=== PATIENT | male | born 1950 | race Caucasian/White ===

== ENCOUNTER → 2018-07-08 13:39 | Outpatient (CLI) | payer MEDICARE, SELFPAY ==
[2018-07-08 16:34] LABS: PSA,Total - Annual Screen 0.32 ng/mL (0.00-4.00)
--- OUTSIDE RECORDS SUMMARY | 2018-09-12 03:33 | XMS RPT_ITS ---
:1950 Author Organization [facility] Care Team Providers Name Role Phone Mike Watson Attending Unavailable Mike Watson Primary Care Unavailable PROBLEMS PROBLEMS DATE TYPE CONDITION / CODE ATTENDING STATUS SOURCE 07/08/2018 Unknown Z12.5 - Mike Watson Active [place] Encounter for Community screening for Hospital malignant Repository neoplasm of prostate / Z12.5(ICD-10) PROCEDURES PROCEDURES No Procedure Records FoundRESULTS RESULTS PSA,TOTAL - ANNUAL Collected: 07/08/2018 Status: F Source: [place] SCREEN 1:48 PM [facility] REPOSITORY TYPE CODE TESTS RESULT OUT OF RANGE REFERENCE UNITS LAB L501.9910 0.00-4.00 ng/mL Normal PSA,TOT 0.32 SCREEN Result Comment: This test was performed using the TPSA assay method for the [employer] chemistry system. Values obtained with different assay methods cannot be used interchangably. When changing PSA assays in the course of monitoring a patient, additional sequential testing should be carried out to confirm baseline values. Performed By: #### [id number] #### [facility] [address] [place], [address] ALLERGIES ALLERGIES No Allergies Records FoundENCOUNTERS ENCOUNTERS ADMIT/DISCHARGE ACCOUNT ADMITTING ENCOUNTER LOCATION SOURCE NUMBER CLASS 07/08/2018 [id number] Ambulatory [facility] ing:BFHLAB Repository PAYERS PAYERS ENCOUNTER GUARANTOR PAYER SUBSCRIBER SOURCE 07/08/2018 HETAL Bishop Primary HETAL Mcwilliams [id number] Insurance:MEDICARE THOMASDOB[facility] [id number]: Repository [id number]: [phone] [id number] [phone] () Date:2018-07-08 07/08/2018 Secondary HETAL Mcwilliams Insurance:TITO RAMOS: Community MEDICAREPolicy [id number] Hospital Number: Repository [id number] Date:1321-15-12[address] [place] [id number]: 07/08/2018 Tertiary NOT [place] Insurance:SELF PAY [facility] Number: Effective Repository Date:2018-07-08
== END ==
PROVIDERS: Family Provider Family Medicine; PCP Family Medicine; Visit Provider Family Medicine
DX: Z12.5 Encounter for screening for malignant neoplasm of prostate (principal)
CPT/HCPCS: 36415; 84153; G0103

== ENCOUNTER → 2018-07-18 08:27 | Outpatient (CLI) | payer MEDICARE, SELFPAY ==
--- NOTE | 2018-07-18 08:30 | US_ITS ---
HISTORY: AAA SCREENINGHX OF SMOKER X 37 YEARS EXAM/TECHNIQUE: US Duplex Aorta, IVC, Illiac or Bypass Grafts Complete: COMPARISON: None. FINDINGS: # of images incl. paperwork: 36 The abdominal aorta measures 2.3 x 2.1 cm proximally, 1.8 x 2.2 cm at the midportion, and 1.7 x 1.9 cm distally. There is atherosclerotic irregularity of the mid and distal abdominal aorta but no aneurysm. The right common iliac artery measures 0.8 x 1.0 cm. The left common iliac artery measures 0.8 x 0.9 cm. US/Aorta IMPRESSION: Atherosclerosis but with no abdominal aortic or common iliac artery aneurysm. at 1000 Reported and signed by: Lm Strong MD Electronically Signed: Lm Strong, at 9:59 EST Tel , Service support ,
== END ==
PROVIDERS: Family Provider Family Medicine; PCP Family Medicine; Referring Provider Family Medicine; Visit Provider Family Medicine
DX: R09.89 Other specified symptoms and signs involving the circulatory and respiratory systems (principal); Z13.6 Encounter for screening for cardiovascular disorders; Z72.0 Tobacco use
CPT/HCPCS: 76775

== ENCOUNTER → 2018-07-19 16:17 | Outpatient (CLI) | payer MEDICARE, SELFPAY ==
--- NOTE | 2018-07-19 16:19 | US_ITS ---
STUDY: SCROTUM ULTRASOUND REASON FOR EXAM: Male, 68 years old. Right-sided swelling, suspect hydrocele TECHNIQUE: Ultrasound evaluation of the scrotum was performed with color Doppler and static navarro-scale imaging. COMPARISON: None. FINDINGS: RIGHT TESTICLE INTRATESTICULAR: There is a normal size of the right testicle. The right testicle measures 3.9 x 3.4 x 2.0 cm. There is a homogenous echotexture. There is normal arterial and normal venous vascularity. There is no demonstrated right testicular mass or cyst. EXTRATESTICULAR: The epididymis is normal in size. The epididymis head measures 1.0 x 0.8 x 0.6 cm. There is normal vascularity of the epididymis. 2.3 x 1.1 x 2.0 cm epididymis cyst. There is a cystic structure in the right hemiscrotum measuring 8.5 x 7.7 x 6.3 cm. This is most likely a spermatocele. There is no demonstrated varicocele. There is no demonstrated extratesticular mass or cyst. LEFT TESTICLE INTRATESTICULAR: There is a normal size of the left testicle. The left testicle measures 4.3 x 2.7 x 1.7 cm. There is a homogenous echotexture. There is normal arterial and normal venous vascularity. There is no demonstrated left testicular mass or cyst. EXTRATESTICULAR: The epididymis is normal in size. The epididymis head measures 1.0 x 0.9 x 0.9 cm. There is normal vascularity of the epididymis. Epididymis cyst measuring 4 x 4 by 3 mm. There is no demonstrated hydrocele. There is no demonstrated varicocele. There is no demonstrated extratesticular mass or cyst. US/Testicular with Arterial Flow IMPRESSION: There is a cystic structure in the right hemiscrotum measuring 8.5 x 7.7 x 6.3 cm. This is most likely a spermatocele. No evidence of intratesticular pathology. Bilateral epididymis cysts. Electronically Signed: Bj Gates MD at 10:00 EST Tel , Service support ,
== END ==
PROVIDERS: Family Provider Family Medicine; PCP Family Medicine; Referring Provider Family Medicine; Visit Provider Family Medicine
DX: N43.2 Other hydrocele (principal)
CPT/HCPCS: 76870; 93976

== ENCOUNTER → 2019-01-18 | Outpatient (CLI) | payer MEDICARE, OTHER, SELFPAY ==
--- NOTE | 2019-01-18 10:22 | RAD_ITS ---
STUDY: X-RAY - PELVIS REASON FOR EXAM: Male, 68 years old. Chronic hip and back pain TECHNIQUE: One view of the pelvis was obtained. COMPARISON: None. FINDINGS: There is a non-specific bowel gas pattern. Normal visualized soft tissue structures. Normal bilateral iliac wings, sacroiliac joints and visualized sacrum. Normal visualized bilateral superior and inferior pubic rami. Normal pubic symphysis. Normal ischial tuberosities. Normal visualized right femoral head. Normal right acetabulum. There is mild articular joint space narrowing of the right hip. Normal visualized left femoral head. Normal left acetabulum. There is moderate articular joint space narrowing of the left hip. RAD/Pelvis 1 or 2 Views IMPRESSION: Bilateral hip joint arthrosis, slightly more prominent on the left than the right. No demonstrated fracture or suspicious osseous lesion Electronically Signed: Mazin Garcia MD at 11:01 EDT , Service support ,
[2019-01-18 10:46] LABS: Absolute Lymphocyte Count 0.98 X10^3/uL (0.83-4.51); Absolute Neutrophil Count 8.9 X10^3/uL (2.0-7.7); Basophil# 0.02 X10^3/uL; Basophil% 0.2 % (0-1); Eosinophil# 0.29 X10^3/uL; Eosinophils% 2.6 % (0-5); Hematocrit 35.4 % (40-54); Hemoglobin 11.6 g/dL (13.0-16.5); Lymphocyte # 0.98 X10^3/ul (4.0); Lymphocyte % 8.9 % (19-41); Mean Corp Hgb Conc 32.8 g/dL (32-36); Mean Corpuscular Hgb 31.4 pg (27.0-32.0); Mean Corpuscular Volume 95.7 fL (80-94); Monocyte# 0.71 X10^3/uL; Monocyte% 6.5 % (0-10); NRBC Flagged by Analyzer 0 % (0-5); Neutrophil # 8.87 X10^3/uL (2.7-7.7); Neutrophil % 81.1 % (47-70); Platelet Count 528 K/mm3 (150-450); RBC Distribution Width CV 13.2 % (11.6-14.6); RBC Distribution Width SD 46.5 fl (35.1-43.9)
[2019-01-18 11:00] LABS: Erythrocyte Sedimentation Rate 71 mm/hr (0-20)
[2019-01-18 11:09] LABS: ALB/GLOB Ratio 0.8 RATIO (0.9-2.4); AST(SGOT) 20 U/L (15-37); Alanine Aminotransfer ALT/SGPT 26 U/L (16-61); Alkaline Phosphatase 88 U/L (45-117); Anion Gap 6 (5-15); BUN 18 mg/dL (7-18); BUN/Creat Ratio 24.1 RATIO (10-20); Calcium,Total 8.5 mg/dL (8.5-10.1); Chloride 109 mmol/L (98-107); Creatinine, Serum 0.75 mg/dL (0.70-1.30); EST Glomerular Filtration Rate 111 mL/min (>60); Est Glom Filt Rate - Afr Amer 134 mL/min (>60); Globulin 3.8 g/dL (2.2-4.2); Glucose 95 mg/dL (74-106); Potassium 4.3 mmol/L (3.5-5.1); Protein, Total 6.8 g/dL (6.4-8.2); Rheumatoid Factor < 10.0 IU/mL (<15); Sodium Level 143 mmol/L (136-145)
[2019-01-19 15:57] LABS: ANTINUCLEAR ANTIBODIES DIRECT Negative (Negative)
[2019-01-21 03:06] LABS: Lyme IgG P18 Ab Absent (.); Lyme IgG P23 Ab Absent (.); Lyme IgG P28 Ab Absent (.); Lyme IgG P30 Ab Absent (.); Lyme IgG P39 Ab Absent (.); Lyme IgG P41 Ab Absent (.); Lyme IgG P45 Ab Absent (.); Lyme IgG P58 Ab Absent (.); Lyme IgG P66 Ab Absent (.); Lyme IgG P93 Ab Absent (.); Lyme IgM P23 Ab Absent (.); Lyme IgM P39 Ab Absent (.); Lyme IgM P41 Ab Absent (.)
[2019-01-23 08:19] LABS: CCP IgG Antibodies 6 units (0-19); Lyme IgG WB Interpretation Negative (.); Lyme IgM WB Interpretation Negative (.)
== END | disposition home or self-care (01) ==
PROVIDERS: Family Provider Family Medicine; PCP Family Medicine; Referring Provider Family Medicine; Visit Provider Family Medicine
DX: R10.2 Pelvic and perineal pain (principal); M25.50 Pain in unspecified joint; R63.4 Abnormal weight loss; Z12.5 Encounter for screening for malignant neoplasm of prostate
CPT/HCPCS: 36415; 72170; 80053; 85025; 85652; 86038; 86140; 86200; 86225; 86235; 86431; 86617

== ENCOUNTER → 2020-01-11 09:32 | Outpatient (CLI) | payer MEDICARE, OTHER, SELFPAY ==
[2020-01-11 12:23] LABS: Absolute Lymphocyte Count 1.31 X10^3/uL (0.83-4.51); Absolute Neutrophil Count 5.3 X10^3/uL (2.0-7.7); Basophil# 0.06 X10^3/uL; Basophil% 0.8 % (0-1); Eosinophil# 0.44 X10^3/uL; Eosinophils% 5.6 % (0-5); Hematocrit 40.1 % (40-54); Hemoglobin 13.4 g/dL (13.0-16.5); Lymphocyte # 1.31 X10^3/ul (4.0); Lymphocyte % 16.8 % (19-41); Mean Corp Hgb Conc 33.4 g/dL (32-36); Mean Corpuscular Hgb 33.3 pg (27.0-32.0); Mean Corpuscular Volume 99.8 fL (80-94); Monocyte# 0.68 X10^3/uL; Monocyte% 8.7 % (0-10); NRBC Flagged by Analyzer 0 % (0-5); Neutrophil # 5.28 X10^3/uL (2.7-7.7); Neutrophil % 67.7 % (47-70); Platelet Count 328 K/mm3 (150-450); RBC Distribution Width CV 13.7 % (11.6-14.6); RBC Distribution Width SD 50.4 fl (35.1-43.9); Red Blood Count 4.02 M/mm3 (4.6-6.2); White Blood Count 7.8 K/mm3 (4.4-11.0)
[2020-01-11 12:34] LABS: ALB/GLOB Ratio 1.2 RATIO (0.9-2.4); AST(SGOT) 20 U/L (15-37); Alanine Aminotransfer ALT/SGPT 30 U/L (16-61); Albumin, Serum 3.5 g/dL (3.2-5.0); Alkaline Phosphatase 59 U/L (45-117); Anion Gap 1 (5-15); BUN 21 mg/dL (7-18); BUN/Creat Ratio 27.1 RATIO (10-20); Calcium,Total 8.5 mg/dL (8.5-10.1); Chloride 108 mmol/L (98-107); Creatinine, Serum 0.78 mg/dL (0.70-1.30); EST Glomerular Filtration Rate 106 mL/min (>60); Est Glom Filt Rate - Afr Amer 128 mL/min (>60); Globulin 2.9 g/dL (2.2-4.2); Glucose 80 mg/dL (74-106); PSA,Total - Annual Screen 0.36 ng/mL (0.00-4.00); Potassium 4.2 mmol/L (3.5-5.1); Protein, Total 6.4 g/dL (6.4-8.2); Sodium Level 139 mmol/L (136-145)
== END ==
PROVIDERS: PCP Family Medicine; Visit Provider Family Medicine
DX: D64.9 Anemia, unspecified (principal); I70.0 Atherosclerosis of aorta; E88.09 Other disorders of plasma-protein metabolism, not elsewhere classified; Z12.5 Encounter for screening for malignant neoplasm of prostate
CPT/HCPCS: 36415; 80053; 84153; 85025; G0103

== ENCOUNTER → 2022-04-14 | Outpatient (CLI) | payer MEDICARE, OTHER, SELFPAY ==
[2022-04-14 12:19] LABS: Absolute Lymphocyte Count 1.32 X10^3/uL (0.83-4.51); Absolute Neutrophil Count 4.7 X10^3/uL (2.0-7.7); Basophil# 0.05 X10^3/uL; Basophil% 0.7 % (0-1); Eosinophil# 0.35 X10^3/uL; Eosinophils% 4.9 % (0-5); Hematocrit 42.4 % (40-54); Hemoglobin 14.3 g/dL (13.0-16.5); Lymphocyte # 1.32 X10^3/ul (0.83-4.51); Lymphocyte % 18.4 % (19-41); Mean Corp Hgb Conc 33.7 g/dL (32-36); Mean Corpuscular Hgb 33.8 pg (27.0-32.0); Mean Corpuscular Volume 100.2 fL (80-94); Monocyte# 0.75 X10^3/uL; Monocyte% 10.5 % (0-10); NRBC Flagged by Analyzer 0 % (0-5); Neutrophil # 4.67 X10^3/uL (2.7-7.7); Neutrophil % 65.1 % (47-70); Platelet Count 327 K/mm3 (150-450); RBC Distribution Width CV 13.3 % (11.6-14.6); RBC Distribution Width SD 49.4 fl (35.1-43.9); Red Blood Count 4.23 M/mm3 (4.6-6.2); White Blood Count 7.2 K/mm3 (4.4-11.0)
[2022-04-14 12:31] LABS: Color, Urine Yellow (Yellow); Glucose, Dipstick Normal (Normal); Ketone-Dipstick Negative (Negative); Leukocyte Esterase-Dipstick Negative /ul (Negative); Nitrite-Dipstick Negative (Negative); Occult Blood-Urine Negative /ul (Negative); Protein-Dipstick Negative (Negative); Urine Bilirubin Dipstick Negative (Negative); Urine Clarity Clear (Clear); Urine Urobilinogen Normal (Normal)
[2022-04-14 12:42] LABS: ALB/GLOB Ratio 1.1 RATIO (0.9-2.4); AST(SGOT) 26 U/L (15-37); Alanine Aminotransfer ALT/SGPT 35 U/L (16-61); Albumin, Serum 3.6 g/dL (3.2-5.0); Alkaline Phosphatase 64 U/L (45-117); Anion Gap 3 (5-15); BUN 21 mg/dL (7-18); BUN/Creat Ratio 23.3 RATIO (10-20); Calcium,Total 8.9 mg/dL (8.5-10.1); Chloride 110 mmol/L (98-107); Cholesterol 191 mg/dL (200); EST Glomerular Filtration Rate 88 mL/min (>60); Est Glom Filt Rate - Afr Amer 107 mL/min (>60); Globulin 3.2 g/dL (2.2-4.2); Glucose 99 mg/dL (74-106); High Density Lipoprotein 57 mg/dL; PSA,Total - Annual Screen 0.34 ng/mL (0.00-4.00); Potassium 4.6 mmol/L (3.5-5.1); Protein, Total 6.8 g/dL (6.4-8.2); Sodium Level 141 mmol/L (136-145); Triglycerides 60 mg/dL; Very Low Density Lipoprotein 12 mg/dL (5-40)
== END | disposition home or self-care (01) ==
LOC: BFHLAB 10:02
PROVIDERS: PCP Family Medicine; Visit Provider Family Medicine
DX: E78.5 Hyperlipidemia, unspecified (principal); R79.9 Abnormal finding of blood chemistry, unspecified; Z51.81 Encounter for therapeutic drug level monitoring; Z12.5 Encounter for screening for malignant neoplasm of prostate
CPT/HCPCS: 36415; 80053; 80061; 81002; 84153; 85025; G0103

== ENCOUNTER → 2023-07-05 | Outpatient (CLI) | payer MEDICARE, OTHER, SELFPAY ==
--- OUTSIDE RECORDS SUMMARY | 2023-07-05 12:04 | XMS RPT_ITS | CCD ---
Author Name Unknown Address [address] [place] [address] Organization [facility] Care Team Providers Care Industrial Controller Name Role Phone Mike Watson Primary Care Provider Hank Salcido MD Unavailable Mike Watson DO Primary Care Provider Medications Completed/Discontinued Medications Medication Drug Class(es) Dates Sig (Normalized) Sig (Original) calcium carbonate 1250 mg / cholecalciferol 200 unt oral tablet (8 sources) Vitamin D Start: 04-19-2019 End: 03-05-2020 take 1 tablet by mouth once daily CALCIUM 500+D 500 mg(1,250mg) -200 unit per tablet TAKE 1 TABLET BY MOUTH EVERY DAY 90 tablet 2 03/05/2020 Active Problems Active Problems Problem Classification Problem Date Documented Da te Episodic/Chronic Osteoarthritis (9 sources) Degenerative joint disease involving multiple joints; Translations: [Other hypertrophic osteoarthropathy, multiple sites] Onset: 05-31-2019 05-31-2019 Chronic Osteoporosis (1 source) Osteoporosis; Translations: [Age-related osteoporosis without current pathological fracture] Chronic Other connective tissue disease (6 sources) Polymyalgia rheumatica; Translations: [Polymyalgia rheumatica] Onset: 05-31-2019 05-31-2019 Chronic Other non-traumatic joint disorders (1 source) Other specific arthropathies, not elsewhere classified, left shoulder; Translations: [Other specific arthropathies, not elsewhere classified, left shoulder] Onset: 11-24-2018 11-27-2018 Chronic Other non-traumatic joint disorders (1 source) Other specific arthropathies, not elsewhere classified, right shoulder; Translations: [Other specific arthropathies, not elsewhere classified, right shoulder] Onset: 11-24-2018 11-27-2018 Chronic Unclassified (3 sources) Long-term current use of systemic steroid; 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] Onset: 05-31-2019 05-31-2019 Past or Other Problems Problem Classification Problem Date Documented Da te Episodic/Chronic Other aftercare (3 sources) Long-term current use of systemic steroid; 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] Onset: 05-31-2019 05-31-2019 Episodic Other connective tissue disease (1 source) Unspecified rotator cuff tear or rupture of left shoulder, not specified as traumatic; Translations: [Unspecified rotator cuff tear or rupture of left shoulder, not specified as traumatic] Onset: 11-24-2018 11-27-2018 Episodic Other connective tissue disease (1 source) Unspecified rotator cuff tear or rupture of right shoulder, not specified as traumatic; Translations: [Unspecified rotator cuff tear or rupture of right shoulder, not specified as traumatic] Onset: 11-24-2018 11-27-2018 Episodic Unclassified (1 source) Problem Results Test Name Value Interpretation Reference Range Facil ity Vital Signs Date Time Vital Sign Value Performing Clinician Facility NEGATED: Highlighted [id number] 14:51-0400 BMI (Body Mass Index) 27.14 kg/m2 Maura Santos LPN [facility] Work Phone: NEGATED: Highlighted [id number] 14:51-0400 Body weight 72.58 kg Maura Santos LPN [facility] Work Phone: NEGATED: Highlighted [id number] 14:51-0400 Body weight 73 kg Maura Santos DIRECT SUPPORT PROFESSIONAL [facility] Work Phone: NEGATED: Highlighted [id number] 14:51-0400 BP Diastolic 67 mm[Hg] Maura Santos DIRECT SUPPORT PROFESSIONAL [facility] Work Phone: NEGATED: Highlighted [id number] 14:51-0400 BP Systolic 106 mm[Hg] Maura Santos DIRECT SUPPORT PROFESSIONAL [facility] Work Phone: NEGATED: Highlighted [id number] 14:51-0400 Height 163.83 cm Mauar Santos DIRECT SUPPORT PROFESSIONAL [facility] Work Phone: NEGATED: Highlighted [id number] 14:51-0400 Height 164 cm Maura Santos DIRECT SUPPORT PROFESSIONAL [facility] Work Phone: NEGATED: Highlighted [id number] 14:51-0400 Pulse (Heart Rate) 76 /min Maura Santos [facility] Work Phone: Encounters Encounter Date Encounter Type Care Provider Facility Start: 06-30-2021 Telephone encounter Sheri ruth PA-C Work Phone: Rheumatology Procedures Date Procedure Procedure Detail Performing Clinician Start: 11-24-2018 End: 11-27-2018 Arthrocentesis aspir&/inj major jt/bursa w/o us Hank Salcido MD Work Phone: Start: 11-24-2018 End: 11-27-2018 Blood pressure within normal parameters - no follow-up required Hank Salcido MD Work Phone: Start: 11-24-2018 End: 11-27-2018 BMI documented as above normal parameters - follow-up documented Hank Salcido MD Work Phone: Start: 11-24-2018 End: 11-27-2018 Documentation of current medications Hank Salcido MD Work Phone: Start: 11-24-2018 End: 11-27-2018 Injection - triamcinolone acetonide 10 mg Hank Salcido MD Work Phone: Start: 11-24-2018 End: 11-27-2018 Pain assessment documented as negative - follow-up not required Hank Salcido MD Work Phone: Start: 11-24-2018 End: 11-27-2018 Pt tobacco screen rcvd tlk Hank Salcido MD Work Phone: Start: 11-24-2018 End: 11-24-2018 Radex shoulder complete minimum 2 views aHnk Salcido MD Work Phone: NEGATED: Highlighted rowStart: 11-24-2018 End: 11-24-2018 Documentation of current medications Maura Santos LPN NEGATED: Highlighted rowStart: 11-24-2018 End: 11-24-2018 Smoking cessation education Maura Santos LPN Plan of Treatment Date Care Activity Detail Author Start: 04-02-2021 COVID-19 VACCINE (3 - Booster for Pfizer series) COVID-19 VACCINE (3 - Booster for Pfizer series) [facility] Start: 02-19-2021 Influenza vaccination INFLUENZA (#1) [facility] Start: 02-20-2020 Influenza vaccination INFLUENZA (#1) [facility] Start: 2017 ADVANCE DIRECTIVE DISCUSSION ADVANCE DIRECTIVE DISCUSSION [facility] Start: 2017 PNEUMOVAX AGE 65 AND OVER WITH 5YR LOOKBACK (#1) PNEUMOVAX AGE 65 AND OVER WITH 5YR LOOKBACK (#1) [facility] Start: 2007 PROSTATE CANCER SCRE ENING DISCUSSION PROSTATE CANCER SCREENING DISCUSSION [facility] Start: 2002 Screening for malign ant neoplasm of colon [facility] Start: 2002 SHINGRIX VACCINE (1 of 2) SHINGRIX V ACCINE (1 of 2) [facility] Start: 2002 Tuberculosis screening COLOREC TESSIE CANCER SCREENING,SEE MODIFIER [facility] Start: 1997 COLOGUARD (FIT-DNA) COLOGUARD (FIT-D NA) [facility] Start: 1997 Colonoscopy COLONOSCOPY [facility] Start: 1997 COLORECTAL CANCER SCREENING COLORECTAL CANCER SCREENING [facility] Start: [address] COLONOGRAPHY [facility] Start: 1997 DIABETES SCREEN DIABETES SCREEN [facility] Start: 1997 FECAL OCCULT BLOOD FECAL OCCULT BLOO D [facility] Start: 1997 Screening for malign ant neoplasm of colon COLORECTAL CANCER SCREENING [facility] Start: 1997 [facility] Start: 1987 LIPID SCREEN LIPID SCREEN [facility] Start: 1971 Urine microalbumin profile DTAP,TDAP ,TD (1 - Tdap) [facility] Start: 1970 HEPATITIS C SCREENING HEPATITIS C SC AMELIA [facility] Start: 1964 Adult depression scr eening assessment DEPRESSION SCREENING [facility] Start: 1952 ABDOMINAL AORTIC ANE URYSM SCREENING ABDOMINAL AORTIC ANEURYSM SCREENING [facility] End: 01-26-2022 Dxa bone density study 1/> sites axial skel DXA-AXIAL SKELETON Radiology Routine Osteoporosis, unspecified osteoporosis type, unspecified pathological fracture presence 1 Occurrences starting 12/27/2020 until 01/26/2022 [facility] Payers Date Payer Category Payer Medicare [id number] 2017 Unknown [id number] 1. [id number] Social History Date Type Detail Facility Start: 02-03-2019 End: 10-18-2019 Tobacco smoking status NHIS Current every day smoker [facility] History of tobacco use Cigar Smoker [facility] Start: 02-03-2019 End: 10-18-2019 Tobacco use and exposure Never used [facility] Start: 10-18-2019 Alcohol intake Ex-drinker (finding) [facility] Start: 02-03-2019 Tobacco Comment X 10 small cig ars daily [facility] Start: 02-03-2019 Alcohol Comment Rarely [facility] Start: 1950 Sex Assigned At Not on file [facility] Exposure to SARS-CoV-2 (event) Unable to assess [facility] Start: 11-27-2018 End: 11-27-2018 Assertion Unknown if ever smoked [facility] Work Phone: NEGATED: Highlighted rowStart: 11-24-2018 End: 11-24-2018 Alcohol use Alcohol use [facility] Work Phone: NEGATED: Highlighted rowStart: 11-24-2018 End: 11-24-2018 Details of drug misuse behavior Details of drug misuse behavior [facility] Work Phone: NEGATED: Highlighted rowStart: 11-24-2018 End: 11-24-2018 Employment detail Employment detail [facility] Work Phone: NEGATED: Highlighted rowStart: 11-24-2018 End: 11-24-2018 Tobacco use and exposure Tobacco use and exposure [facility] Work Phone: Note 06-30-2021 Telephone Encounter - Shell Soler - 06/30/2021 4:28 PM EST Note Date & Type Note Facility 06-30-2021 Miscellaneous Notes No Show Documentation Winston Jaime no showed for an appointment on 06/30/21 with Sheri Call PA-C at [facility]. He was scheduled for 1:20p. I called and spoke with the patient regarding his missed appointment. Winston stated the reason that he missed his appointment was because na. Resources discussed/offered to patient: LM No show determined to be fault of patient: Yes This is the patients first no show in the last 12 months. Patient was rescheduled for no. Letter mailed : Yes Is this the Third or Fourth No Show ? No Shell Soler June 30, 2021 4:29 PM documented in this encounter [facility] Progress note 12-27-2020 Note Date & Type Note Facility 12-27-2020 Note HNO ID: [id number] Author: Nabila Santillan MD Service: ? Author Type: Physician Type: Progress Notes Filed: 12/27/2020 11:41 AM Note Text: VIRTUAL VISIT PROGRESS NOTE This is a virtual visit. It required patient-provider interaction for the medical decision making as documented below. Winston Jaime is a 69 year old male seen for PMR. Doing well. Off pred since . Takes Naproxen 1-2/week for OA pain. He saw PCP in November and had blood work. HISTORY REVIEWED (electronic chart updated): PAST MEDICAL HISTORY Diagnosis Date - Aortic atherosclerosis (HCC) - Family history of prostate cancer - Osteoarthritis of hips, bilateral Left greater than right - Spermatocele PAST SURGICAL HISTORY Procedure Laterality Date - EXTRACTION, ERUPTED TOOTH OR EXPOSED ROOT (ELEVATION AND/OR FORCEPS REMOVAL) - FINGER SURGERY HX FAMILY HISTORY Problem Relation Age of Onset - Arthritis Mother Rheumatoid ? Social History Tobacco Use - Smoking status: Current Every Day Smoker Types: Cigars - Smokeless tobacco: Never Used - Tobacco comment: X 10 small cigars daily Substance Use Topics - Alcohol use: Not Currently Comment: Rarely - Drug use: Not on file Current Outpatient Medications Medication Sig - naproxen (NAPROSYN) 500 mg tablet Take 1 tablet by mouth twice daily with meals. Take with food - CALCIUM 500+D 500 mg(1,250mg) -200 unit per tablet TAKE 1 TABLET BY MOUTH EVERY DAY No current facility-administered medications for this visit. ALLERGIES No Known Allergies REVIEW OF SYSTEMS: All other ROS: negative As noted in HPI PHYSICAL EXAMINATION: VIDEO EXAM: (if completed, performed via video enabled technology) GENERAL: alert and appropriate, in no distress, well-hydrated, well nourished and happy, smiling, interactive ASSESSMENT: (M89.49) Primary osteoarthritis involving multiple joints (primary encounter diagnosis) (M81.0) Osteoporosis, unspecified osteoporosis type, unspecified pathological fracture presence PLAN: BMD 2020 Naproxen as needed for OA Ca-Vit D Patient Instructions BONE MINERAL DENSITY PATIENT INSTRUCTIONS == Bone mineral density testing measures the amount of calcium in certain parts of your bones. This information determines how strong your bones are. The test is used to detect osteoporosis, a disease in which the bone's mineral content and density are low, increasing a person's risk of fractures. The lumbar spine (lower back) and the hip are the skeletal sites usually examined. For the test, remember that: 1. You cannot take this test if you are . 2. Eat a normal diet on the day of the test. 3. Take your medications as you normally would. 4. DO NOT take calcium supplements (such as Tums) for 24 hours before the test. 5. On the day of the test, leave valuables (jewelry or credit cards) at home. 6. The test should be performed prior to oral, rectal or IV contrast studies, or at least 7 days after any of these studies. For the test, you may be asked to wear a hospital gown. You will lie on your back, on a padded table, in a comfortable position. Generally, you can resume your usual activities immediately. I spent more than 20 minutes [id number] with the patient and over half the time was devoted to counseling and/or coordination of care. Nabila Santillan MD [facility] on 12/27/20 - DXA-AXIAL SKELETON Medication orders placed this encounter naproxen (NAPROSYN) 500 mg tablet Sig: Take 1 tablet by mouth twice daily with meals. Take with food Dispense: 60 tablet Refill: 1 Platform used - my chart [facility] Instructions 12-27-2020 Patient Instructions Note Date & Type Note Facility 12-27-2020 Instructions Nabila Santillan MD - 12/27/2020 11:15 AM EDT BONE MINERAL DENSITY PATIENT INSTRUCTIONS Bone mineral density testing measures the amount of calcium in certain parts of your bones. This information determines how strong your bones are. The test is used to detect osteoporosis, a disease in which the bone's mineral content and density are low, increasing a person's risk of fractures. The lumbar spine (lower back) and the hip are the skeletal sites usually examined. For the test, remember that: 1. You cannot take this test if you are . 2. Eat a normal diet on the day of the test. 3. Take your medications as you normally would. 4. DO NOT take calcium supplements (such as Tums) for 24 hours before the test. 5. On the day of the test, leave valuables (jewelry or credit cards) at home. 6. The test should be performed prior to oral, rectal or IV contrast studies, or at least 7 days after any of these studies. For the test, you may be asked to wear a hospital gown. You will lie on your back, on a padded table, in a comfortable position. Generally, you can resume your usual activities immediately. documented in this encounter [facility] History of Present illness Narrative 12-27-2020 Nabila Santillan MD - 12/27/2020 11:11 AM EDT Note Date & Type Note Facility 12-27-2020 History of Presen t illness Narrative VIRTUAL VISIT PROGRESS NOTE This is a virtual visit. It required patient-provider interaction for the medical decision making as documented below. Winston Jaime is a 69 year old male seen for PMR. Doing well. Off pred since . Takes Naproxen 1-2/week for OA pain. He saw PCP in November and had blood work. HISTORY REVIEWED (electronic chart updated): PAST MEDICAL HISTORY Diagnosis Date Aortic atherosclerosis (HCC) Family history of prostate cancer Osteoarthritis of hips, bilateral Left greater than right Spermatocele PAST SURGICAL HISTORY Procedure Laterality Date EXTRACTION, ERUPTED TOOTH OR EXPOSED ROOT (ELEVATION AND/OR FORCEPS REMOVAL) FINGER SURGERY HX FAMILY HISTORY Problem Relation Age of Onset Arthritis Mother Rheumatoid ? Social History Tobacco Use Smoking status: Current Every Day Smoker Types: Cigars Smokeless tobacco: Never Used Tobacco comment: X 10 small cigars daily Substance Use Topics Alcohol use: Not Currently Comment: Rarely Drug use: Not on file Current Outpatient Medications Medication Sig naproxen (NAPROSYN) 500 mg tablet Take 1 tablet by mouth twice daily with meals. Take with food CALCIUM 500+D 500 mg(1,250mg) -200 unit per tablet TAKE 1 TABLET BY MOUTH EVERY DAY No current facility-administered medications for this visit. ALLERGIES No Known Allergies REVIEW OF SYSTEMS: All other ROS: negative As noted in HPI PHYSICAL EXAMINATION: VIDEO EXAM: (if completed, performed via video enabled technology) GENERAL: alert and appropriate, in no distress, well-hydrated, well nourished and happy, smiling, interactive ASSESSMENT: (M89.49) Primary osteoarthritis involving multiple joints (primary encounter diagnosis) (M81.0) Osteoporosis, unspecified osteoporosis type, unspecified pathological fracture presence PLAN: BMD 2020 Naproxen as needed for OA Ca-Vit D Patient Instructions BONE MINERAL DENSITY PATIENT INSTRUCTIONS ==== Bone mineral density testing measures the amount of calcium in certain parts of your bones. This information determines how strong your bones are. The test is used to detect osteoporosis, a disease in which the bone's mineral content and density are low, increasing a person's risk of fractures. The lumbar spine (lower back) and the hip are the skeletal sites usually examined. For the test, remember that: 1. You cannot take this test if you are . 2. Eat a normal diet on the day of the test. 3. Take your medications as you normally would. 4. DO NOT take calcium supplements (such as Tums) for 24 hours before the test. 5. On the day of the test, leave valuables (jewelry or credit cards) at home. 6. The test should be performed prior to oral, rectal or IV contrast studies, or at least 7 days after any of these studies. For the test, you may be asked to wear a hospital gown. You will lie on your back, on a padded table, in a comfortable position. Generally, you can resume your usual activities immediately. I spent more than 20 minutes [id number] with the patient and over half the time was devoted to counseling and/or coordination of care. Nabila Santillan MD [facility] on 12/27/20 DXA-AXIAL SKELETON Medication orders placed this encounter naproxen (NAPROSYN) 500 mg tablet Sig: Take 1 tablet by mouth twice daily with meals. Take with food Dispense: 60 tablet Refill: 1 Platform used - my chart documented in this encounter [facility] Evaluation note Note Date & Type Note Facility documented in this encounter [facility] Evaluation note Note Date & Type Note Facility documented in this encounter [facility] Summary Purpose Family History No Family History Records FoundThere may be information available, but it has not been provided by the sender.No Family History Records Found Advance Directives No Advanced Directives Records FoundThere may be information available, but it has not been provided by the sender.No Advanced Directives Records Found History of Present Illness * Nabila Santillan - 04/19/2020 12:00 PM EDT VIRTUAL VISIT PROGRESS NOTE This is a virtual visit. It required patient-provider interaction for the medical decision making as documented below. Winston Jaime is a 69 year old male seen for PMR. Doing well. Off pred since . Takes Naproxen 1-2/week for OA pain. He saw PCP in November and had blood work. HISTORY REVIEWED (electronic chart updated): PAST MEDICAL HISTORY Diagnosis Date Aortic atherosclerosis (HCC) Family history of prostate cancer Osteoarthritis of hips, bilateral Left greater than right Spermatocele PAST SURGICAL HISTORY Procedure Laterality Date EXTRACTION, ERUPTED TOOTH OR EXPOSED ROOT (ELEVATION AND/OR FORCEPS REMOVAL) FINGER SURGERY HX FAMILY HISTORY Problem Relation Age of Onset Arthritis Mother Rheumatoid ? Social History Tobacco Use Smoking status: Current Every Day Smoker Types: Cigars Smokeless tobacco: Never Used Tobacco comment: X 10 small cigars daily Substance Use Topics Alcohol use: Not Currently Comment: Rarely Drug use: Not on file Current Outpatient Medications Medication Sig CALCIUM 500+D 500 mg(1,250mg) -200 unit per tablet TAKE 1 TABLET BY MOUTH EVERY DAY naproxen (NAPROSYN) 500 mg tablet TAKE 1 TABLET BY MOUTH TWICE DAILY WITH MEALS. TAKE WITH FOOD No current facility-administered medications for this visit. ALLERGIES No Known Allergies REVIEW OF SYSTEMS: All other ROS: negative As noted in HPI PHYSICAL EXAMINATION: VIDEO EXAM: (if completed, performed via video enabled technology) GENERAL: alert and appropriate, in no distress, well-hydrated, well nourished and happy, smiling, interactive ASSESSMENT: (M89.49) Primary osteoarthritis involving multiple joints (primary encounter diagnosis) PLAN: BMD 2020 Naproxen as needed Ca-Vit D There are no Patient Instructions on file for this visit. I spent more than 20 minutes [id number] with the patient and over half the time was devoted to counseling and/or coordination of care. Nabila Santillan MD No orders found for this visit on 04/19/20. No orders of the defined types were placed in this encounter. Platform used - [employer] documented in this encounterThere may be information available, but it has not been provided by the sender. Assessments Diagnosis Primary osteoarthritis involving multiple joints- Primary Chief Complaint Chief Complaint Description Start Date bilateral shoulder pain Preliminary chief co mplaint data, not yet signed by the author as of Instructions Instruction Description Start Date CompletedPatient advised to follow-up with Primary Care Physician for BMI management. Review of System There may be information available, but it has not been provided by the sender. Additional Source Comments (unrecognized sect ion and content) No Status Records FoundNo Status Records Found INFORMATION SOURCE (unrecogn ized section and content) DATE CREATED AUTHOR AUTHOR'S LORA MARIE 07/01/2021 [facility] Source Comments (unrecognize d section and content) In the event this informatio n is protected by the Federal Confidentiality of Alcohol and Drug Abuse Patient Records regulations: The Federal rules restrict any use of the information to criminally investigate or prosecute any alcohol or drug abuse patient.[facility] the event this information is protected by the Federal Confidentiality of Alcohol and Drug Abuse Patient Records regulations: The Federal rules restrict any use of the information to criminally investigate or prosecute any alcohol or drug abuse patient.[facility] Hospital[facility] the event this information is protected by the Federal Confidentiality of Alcohol and Drug Abuse Patient Records regulations: The Federal rules restrict any use of the information to criminally investigate or prosecute any alcohol or drug abuse patient.[facility] Hospital[facility] the event this information is protected by the Federal Confidentiality of Alcohol and Drug Abuse Patient Records regulations: The Federal rules restrict any use of the information to criminally investigate or prosecute any alcohol or drug abuse patient.[facility] Hospital[facility] the event this information is protected by the Federal Confidentiality of Alcohol and Drug Abuse Patient Records regulations: The Federal rules restrict any use of the information to criminally investigate or prosecute any alcohol or drug abuse patient.[facility] Hospital[facility] the event this information is protected by the Federal Confidentiality of Alcohol and Drug Abuse Patient Records regulations: The Federal rules restrict any use of the information to criminally investigate or prosecute any alcohol or drug abuse patient.[facility] [facility] Reason for Visit (unrecogniz ed section and content) Reason Comments Joint Pain Reason For Visit Description Start Date New - 1st visit with practice Preliminary reason f or visit data, not yet signed by the author as of bilateral shoulder pain Reason Comments Arthritis Reason Comments No Show Care Teams (unrecognized sec tion and content) FOR RECORDS PERTAINING TO PATIENTS WHO ARE OR HAVE BEEN ENROLLED IN A CHEMICAL DEPENDENCY/SUBSTANCEABUSE PROGRAM, SOME INFORMATION MAY BE OMITTED. This clinical summary was aggregated from multiple sources. Caution should be exercised in using it in the provision of clinical care. This summary normalizes information from multiple sources, and as a consequence, information in this document may materially change the coding, format and clinical context of patient data. In addition, data may be omitted in some cases. CLINICAL DECISIONS SHOULD BE BASED ON THE PRIMARY CLINICAL RECORDS. [facility]. provides no warranty or guarantee of the accuracy or completeness of information in this document.
[2023-07-05 14:59] LABS: Absolute Lymphocyte Count 1.22 X10^3/uL (0.83-4.51); Absolute Neutrophil Count 5.2 X10^3/uL (2.0-7.7); Basophil# 0.04 X10^3/uL; Basophil% 0.6 % (0-1); Eosinophil# 0.19 X10^3/uL; Eosinophils% 2.6 % (0-5); Hematocrit 41.9 % (40-54); Hemoglobin 13.6 g/dL (13.0-16.5); Lymphocyte # 1.22 X10^3/ul (0.83-4.51); Lymphocyte % 16.9 % (19-41); Mean Corp Hgb Conc 32.5 g/dL (32-36); Mean Corpuscular Hgb 32.5 pg (27.0-32.0); Mean Platelet Vol. 9.5 fl (6.2-12.0); Monocyte# 0.55 X10^3/uL; Monocyte% 7.6 % (0-10); NRBC Flagged by Analyzer 0 % (0-5); Neutrophil # 5.21 X10^3/uL (2.7-7.7); Neutrophil % 71.9 % (47-70); Platelet Count 342 K/mm3 (150-450); RBC Distribution Width CV 13.4 % (11.6-14.6); Red Blood Count 4.19 M/mm3 (4.6-6.2); White Blood Count 7.2 K/mm3 (4.4-11.0)
[2023-07-05 15:00] LABS: Color, Urine Yellow (Yellow); Glucose, Dipstick Normal (Normal); Ketone-Dipstick Negative (Negative); Leukocyte Esterase-Dipstick Negative /ul (Negative); Nitrite-Dipstick Negative (Negative); Occult Blood-Urine Negative /ul (Negative); Protein-Dipstick Negative (Negative); Urine Bilirubin Dipstick Negative (Negative); Urine Clarity Clear (Clear); Urine Urobilinogen Normal (Normal)
[2023-07-05 15:22] LABS: ALB/GLOB Ratio 1.1 RATIO (0.9-2.4); AST(SGOT) 16 U/L (15-37); Alanine Aminotransfer ALT/SGPT 26 U/L (16-61); Albumin, Serum 3.4 g/dL (3.2-5.0); Alkaline Phosphatase 59 U/L (45-117); Anion Gap 6 (5-15); BUN 22 mg/dL (7-18); BUN/Creat Ratio 28.9 RATIO (10-20); Calcium,Total 8.7 mg/dL (8.5-10.1); Chloride 112 mmol/L (98-107); Cholesterol 182 mg/dL (200); Creatinine, Serum 0.76 mg/dL (0.70-1.30); EST Glomerular Filtration Rate 107 mL/min (>60); Est Glom Filt Rate - Afr Amer 130 mL/min (>60); Globulin 3.1 g/dL (2.2-4.2); Glucose 92 mg/dL (74-106); High Density Lipoprotein 52 mg/dL; PSA,Total - Annual Screen 0.48 ng/mL (0.00-4.00); Potassium 4.5 mmol/L (3.5-5.1); Protein, Total 6.5 g/dL (6.4-8.2); Sodium Level 143 mmol/L (136-145); Triglycerides 44 mg/dL; Very Low Density Lipoprotein 9 mg/dL (5-40)
== END | disposition home or self-care (01) ==
LOC: BFHLAB 11:35
PROVIDERS: PCP Family Medicine; Visit Provider Family Medicine
DX: I10 Essential (primary) hypertension (principal); Z12.5 Encounter for screening for malignant neoplasm of prostate; N50.89 Other specified disorders of the male genital organs
CPT/HCPCS: 36415; 80053; 80061; 81002; 84153; 85025; G0103

== ENCOUNTER → 2024-02-03 | Outpatient (CLI) | payer MEDICARE, OTHER, SELFPAY ==
[2024-02-03 11:13] LABS: PSA,Total- Diagnostic 0.31 ng/mL (0.0-4.0)
== END | disposition home or self-care (01) ==
PROVIDERS: PCP Family Medicine; Referring Provider Urology; Visit Provider Urology
DX: N40.0 Benign prostatic hyperplasia without lower urinary tract symptoms (principal)
CPT/HCPCS: 36415; 84153

== ENCOUNTER → 2024-07-25 | Outpatient (CLI) | payer MEDICARE, OTHER, SELFPAY ==
[2024-07-25 17:30] LABS: Color, Urine Yellow (Yellow); Glucose, Dipstick Normal (Normal); Ketone-Dipstick Negative (Negative); Leukocyte Esterase-Dipstick Negative /ul (Negative); Nitrite-Dipstick Negative (Negative); Occult Blood-Urine Negative /ul (Negative); Protein-Dipstick Negative (Negative); Urine Bilirubin Dipstick Negative (Negative); Urine Clarity Clear (Clear); Urine Urobilinogen Normal (Normal)
[2024-07-25 17:49] LABS: Absolute Neutrophil Count 6.6 X10^3/uL (2.0-7.7); Basophil# 0.06 X10^3/uL; Basophil% 0.7 % (0-1); Eosinophil# 0.27 X10^3/uL; Eosinophils% 2.9 % (0-5); Hematocrit 41.1 % (40-54); Hemoglobin 13.7 g/dL (13.0-16.5); Lymphocyte % 17.5 % (19-41); Mean Corp Hgb Conc 33.3 g/dL (32-36); Mean Corpuscular Hgb 32.9 pg (27.0-32.0); Mean Corpuscular Volume 98.8 fL (80-94); Monocyte% 6.6 % (0-10); NRBC Flagged by Analyzer 0 % (0-5); Neutrophil # 6.59 X10^3/uL (2.7-7.7); Neutrophil % 71.9 % (47-70); Platelet Count 317 K/mm3 (150-450); RBC Distribution Width CV 13.5 % (11.6-14.6); RBC Distribution Width SD 49.1 fl (35.1-43.9); Red Blood Count 4.16 M/mm3 (4.6-6.2); White Blood Count 9.2 K/mm3 (4.4-11.0)
[2024-07-25 18:12] LABS: ALB/GLOB Ratio 1.1 RATIO (0.9-2.4); AST(SGOT) 17 U/L (15-37); Alanine Aminotransfer ALT/SGPT 28 U/L (16-61); Albumin, Serum 3.5 g/dL (3.2-5.0); Alkaline Phosphatase 64 U/L (45-117); Anion Gap 8 (5-15); BUN 21 mg/dL (7-18); Calcium,Total 8.7 mg/dL (8.5-10.1); Chloride 109 mmol/L (98-107); Cholesterol 186 mg/dL (200); EST Glomerular Filtration Rate 78 mL/min (>60); Est Glom Filt Rate - Afr Amer 95 mL/min (>60); Globulin 3.1 g/dL (2.2-4.2); Glucose 94 mg/dL (74-106); High Density Lipoprotein 58 mg/dL; Potassium 3.8 mmol/L (3.5-5.1); Protein, Total 6.6 g/dL (6.4-8.2); Sodium Level 141 mmol/L (136-145); Triglycerides 104 mg/dL; Very Low Density Lipoprotein 21 mg/dL (5-40)
== END | disposition home or self-care (01) ==
PROVIDERS: PCP Family Medicine; Visit Provider Family Medicine
DX: D75.89 Other specified diseases of blood and blood-forming organs (principal); R80.9 Proteinuria, unspecified; R79.9 Abnormal finding of blood chemistry, unspecified; I70.0 Atherosclerosis of aorta
CPT/HCPCS: 36415; 80053; 80061; 81002; 85025